=== PATIENT | female | born 1965 | race Caucasian/White ===

== ENCOUNTER 2018-06-13 07:40 | Outpatient (CLI) | payer OTHER | END 2018-06-13 07:41 | disposition home or self-care (01) | LOC: C.LAB 07:40 ==

== ENCOUNTER 2018-07-09 08:55 | Outpatient (CLI) | payer OTHER | END 2018-07-09 08:56 | disposition home or self-care (01) | LOC: C.MAMMO 08:56 | DX: Z12.31 Encounter for screening mammogram for malignant neoplasm of breast (principal) ==